=== PATIENT | male | born 1990 | race Caucasian/White ===

== ENCOUNTER 2023-08-12 14:46 | Emergency (ER) | payer OTHER ==
[2023-08-12] MEDS ORDERED: Lidocaine 1% w/Epinephrine 1:100K 20 ML VIAL ONE (15:10)
[2023-08-12] MEDS ORDERED: HYDROcodone/Acetaminophen 10/325 mg Tablet ONE (15:47)
[2023-08-12] MEDS ORDERED: Bacitracin 1 PK ONE (16:00)
== END 2023-08-12 16:00 | disposition home or self-care (01) ==
LOC: ERS 14:46
DX: S61.512A Laceration without foreign body of left wrist, initial encounter (principal); W25.XXXA Contact with sharp glass, initial encounter; Y93.89 Activity, other specified
CPT/HCPCS: 12002; 99282